=== PATIENT | female | born 1980 | race Caucasian/White ===

== ENCOUNTER 2017-02-15 21:00 | Emergency (ER) | payer MEDICAID ==
[~2017-02-15] VITALS: Ht 149.9 cm; Wt 72.6 kg
--- NOTE | 2017-02-15 21:22 | Emergency Room Report ---
History of Present Illness Time Seen by [id number] Presenting Problem in Triage Pt arrived:Walked Presenting Problem:PT RPTS REMOVING A TICK FROM HER RIGHT FOREARM 4 DAYS AGO. PT HAS BEEN TAKING HER BOYFRIEND'S BACTRIM X 4 DAYS. PT WITH RED/WARM/HARD/TENDER AREA TO RIGHT FOREARM. PT DENIES DRAINAGE FROM AREA. PT ALSO APPLIED BACTRIM CREAM TO AREA. 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 N Clinical Suspician of Infection? N Mental Status: 1 - Regular (Normal Baseline) Sepsis Risk:Low Sepsis Risk Have you (or family members/close friends) recently traveled outside the [place]? N If Yes, where/when: Have you had exposure to infectious disease within the past month? N TB? Other? Specify: Source patient, RN notes reviewed, family, old records Exam Limitations no limitations Comment tick bite rt forearm with induration and localized swelling - no flu like sx and no other c/o Cardiac Chest Pain Chest pain indicative of cardiac No Timing/Duration this evening Severity moderate ALLERGIES Coded Allergies: No Known Allergies (02/15/17) Home Medications Reported Medications No Known Home Medications History Medical History General CAD? No Angina: No [place]: No Hypertension? No Hyperlipidemia? No CHF? No DVT? No PE? No COPD? No Asthma? No Anemia? No GERD? No Gastric ulcers? No GI Bleed? No Hernia? No Thyroid Problems? Yes Hypothyroidism? Yes CVA? No Seizures? No Diabetes? No Renal Insuffiency? No End Stage Renal Disease? No UTI? No Stones? No BPH? No GB Disease: No Nephritic Syndrome? No Asplenia? No Hepatitis? No Sickle Cell Disease? No Arthritis? No Migraines? No Cataracts? No Glaucoma? No MRSA? No HIV? No TB? No Anxiety? No Depression? No Cancer? No More? No Immunization Hx DT/Tetanus Unknown Surgical Hx Previous Surgery?Y D & C REHAB AIDE Hx LMP 3 Weeks Ago Social History Smoking Hx Smoker: Current Every Day Smoker Tobacco: Yes Type Cigarettes Packs/day < 1 Pack Alcohol Alcohol: No Drugs none Additionial History Additional History hx of mrsa Review of Systems All Other Systems Reviewed and Negative Constitutional denies fever Eyes denies drainage ENT denies: ear pain, epistaxis, throat pain. Respiratory denies cough, denies shortness of breath, denies wheezing Cardiovascular denies chest pain, denies syncope Gastrointestinal denies abdominal pain, denies diarrhea, denies vomiting Genitourinary denies: dysuria, frequency, hesitancy, hematuria. Musculoskeletal denies back pain, denies joint pain, denies joint swelling, denies neck pain Skin see HPI, denies rash, other Psychiatric/Neurological denies headache, denies seizure Physical Exam Vital Signs Vital Signs Date Time Temp Pulse Resp B/P Pulse O2 O2 Flow FiO2 Ox Delivery Rate 02/15 2107 98.6 72 18 126/85 97 - WBC >12,000 or <4,000 or 10% bands? 2 or more SIRS Criteria Met? B/P:126/85 MAP:98 Creatinine >2.0? UA output<0.5ml/kg/hr for 2 hrs? Platelet count >100,000? Lactate >2.0mmol/1? INR >1.2 or PTT > than 60 sec? Evidence of Organ Dysfunction? Provider documented clinical suspician of infection? N Sepsis Criteria Count: 0 Sepsis Risk: Low Sepsis Risk General Appearance no apparent distress Eye Exam - bilateral eye PERRL, bilateral eye EOMI Ear, Nose, Throat normal ENT inspection Neck supple Respiratory Status No: respiratory distress. 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 No Results/Orders Laboratory Tests 02/15/172127: Lactic Acid Cancelled Current Medication Orders Sig/Aaron Start time Last Medication Dose Route Stop Time Status Admin Acetaminophen/ 1 JAMES ONCE ONE 02/15 2145 AC Codeine Phosphate PO 02/15 2146 Hydrocodone Bitart/ 1 TAB ONCE ONE 02/15 2145 AC Acetaminophen PO 02/15 2146 Ketorolac 30 MG ONCE ONE 02/15 2145 AC Tromethamine IV 02/15 2146 Vancomycin HCl 2,000 MG ONCE ONE 02/15 2145 CKDr IV 02/15 2146 Lidocaine HCl 15 ML ONCE ONE 02/15 2130 DC IJ 02/15 2131 Sodium Chloride 10 ML PRN PRN 02/15 2130 AC IV 02/16 2127 Lidocaine HCl 0 .STK-MED ONE 02/16 2120 DC .ROUTE Orders Procedure Date/time Status CULTURE, WOUND 02/15 2134 Active IV SALINE LOCK 02/16 2128 Active CBC WITH AUTO DIFF 02/16 2128 Active CHEM 12 PROFILE 02/16 2128 Active Procedures Incision and Drainage Incision and Drainage Risks/benefits discussed with pt/guardian? Yes Problem type Abcess Location rt forearm Size cm 1.0 Anesthesia Lidocaine 1% Blade Size 15 I & D Procedure Simple, betadine prep, sterile drapes applied, Scalpel incision cm-, Pus small amount, Cultured, Mult. loculations broken , Sterile Dressing Applied. no : Complex, Needle aspiration, Pus large amount, Dissection, Irrigation ml-, gauze wick placed, Packed. Departure Departure Time of Disposition 2116 Disposition DC Home or Self Care(routine) Clinical Impression Primary Impression: Abscess Condition STABLE Patient Instructions DI for Skin Abscess Additional Instructions use meds and see pcp for follow up Discharge Counseling Counseled pt/family regarding diagnosis, test results, medications/RX, follow up needs Prescriptions Current Visit Scripts SULFAMETHOXAZOLE/TRIMETHOPRIM (Sulfamethoxazole-Tmp Ds Tablet) 1 TAB PO BID #20 TAB Minocycline Hcl (Minocycline 100MG. Capsule) 100 MG PO BID #20 CAP ED Critical Care Critical Care No at 2138
--- OUTSIDE RECORDS SUMMARY | 2017-02-15 21:24 | External Medical Summary Rpt ---
Author Author [employer] Organization [employer] Address Unknown Phone Unavailable Purpose Continuity of Care Document - through 2016
--- OUTSIDE RECORDS SUMMARY | 2017-02-15 21:24 | External Medical Summary Rpt ---
Demographics Home Phone Preferred Language Pashto Marital Status Unknown Islam Affiliation Unknown Race Unknown Ethnic Group Unknown Author Author JUAN Address Unknown Phone Purpose Continuity of Care Document - through 2016
--- OUTSIDE RECORDS SUMMARY | 2017-02-15 21:24 | External Medical Summary Rpt ---
Demographics Home Phone Preferred Language Amharic Marital Status Unknown Presybeterian Affiliation Unknown Race Unknown Ethnic Group Unknown Author Author JUAN Address Unknown Phone Purpose Continuity of Care Document - through 2016
--- OUTSIDE RECORDS SUMMARY | 2017-02-15 21:24 | External Medical Summary Rpt ---
Demographics Preferred Language Slovenian Marital Status Unknown Episcopal Affiliation Unknown Race Unknown Ethnic Group Unknown Author Author JUAN Address Unknown Phone Immunization No patient found.
--- OUTSIDE RECORDS SUMMARY | 2017-02-15 21:24 | External Medical Summary Rpt ---
Demographics Preferred Language Portuguese Marital Status Unknown Episcopal Affiliation Unknown Race Unknown Ethnic Group Unknown Author Author JUAN Address Unknown Phone Immunization No patient found.
[2017-02-15] MEDS ORDERED: SEPTRA DS 800 M1 TAB PO (21:37)
[2017-02-15] MEDS ORDERED: MINOCYCLINE 10100 MG PO (21:37)
[2017-02-15 21:52] LABS: HEMOGLOBIN 14.9 g/dL (12.2-16.2); LYMPH # 2.8 K/mm3 (0.7-4.5); LYMPH % 33.7 % (10-50.0)
[2017-02-16] VITALS: BP 102/73
== END 2017-02-16 00:01 | disposition home or self-care (01) ==
LOC: ER 21:00
PROVIDERS: Emergency Medicine
PROC: 0H9DXZZ Drainage of Right Lower Arm Skin, External Approach (ICD-10-PCS; principal; 2017-02-15)
DX: L02.413 Cutaneous abscess of right upper limb (principal)
CPT/HCPCS: J3370